=== PATIENT | male | born 1990 | race Caucasian/White ===

== ENCOUNTER 2017-12-17 19:29 | Emergency (ER) | payer OTHER ==
--- NOTE | 2017-12-17 19:59 | EDPHY ---
H & P Stated Complaint: possible kidney stone-hx of Time Seen by Provider: 12/17/17 19:53 - Personal History Current Tetanus Diphtheria and Acellular Pertussis (TDAP): No - Medical/Surgical History Hx Asthma: No Hx Chronic Respiratory Disease: No Hx Diabetes: No Hx Cardiac Disease: No Hx Renal Disease: No Hx Cirrhosis: No Hx Alcoholism: No Hx HIV/AIDS: No Hx Splenectomy or Spleen Trauma: No Other PMH: kidney stones - Social History Smoking Status: Never smoked Constitutional: Initial Vital Signs Temperature (C) 37 C 12/17/17 19:32 Heart Rate 74 12/17/17 19:32 Respiratory Rate 16 12/17/17 19:32 Blood Pressure 160/88 H 12/17/17 19:32 O2 Sat (%) 96 12/17/17 19:32 O2 Delivery Mode Room Air Allergies/Adverse Reactions: No Known Allergies Allergy (Unverified 12/17/17 19:32) Home Medications: Medication Instructions Recorded Tamsulosin HCl [Flomax 0.4 MG (*)] 0.4 mg PO DAILY #10 cap 12/17/17 oxyCODONE IR [Oxycodone Ir (*)] 5 - 10 mg PO Q6 PRN #20 tab 12/17/17 Medical Decision Making - Diagnostics Imaging: Discussed imaging studies w/ body recall instructor Radiologist, I viewed and interpreted images myself ED Course/Re-evaluation: CHIEF COMPLAINT: "I think I have a kidney stone" HISTORY OF PRESENT ILLNESS: The patient is a 27 y/o male with a history of kidney stones complaining of waxing and waning left-sided flank pain onset today and progressively worsening. His pain is localized to his left flank and non-radiating. No abdominal or groin pain. Symptoms feel the same as prior kidney stones and pain is currently about 6/10 in severity. He has not taken anything for pain. No urinary symptoms. He is otherwise healthy. REVIEW OF SYSTEMS: A 10 point review of systems was performed and is negative with the exception of the elements mentioned in the history of present illness. PHYSICAL EXAM: HR, BP, O2 Sat, RR. Temp noted General Appearance: Alert, well hydrated, appropriate, and non-toxic appearing. Head: Atraumatic without scalp tenderness or obvious injury Eyes: Pupils equal, round, reactive to light and accommodation, EOMI, no trauma , no injection. Nose: Atraumatic, no rhinorrhea, clear. Throat: Mucus membranes moist. Neck: Supple Respiratory: No retractions, no distress, no wheezes, and no accessory muscle use. Lungs are clear to auscultation bilaterally. Cardiovascular: Regular rate and rhythm, no murmurs, rubs, or gallops. Good capillary refill all extremities. Gastrointestinal: Abdomen is soft, non-tender, non-distended, no masses, no rebound, no guarding, no peritoneal signs. Musculoskeletal: Normal active ROM of all extremities, atraumatic. Left CVA tenderness. Neurological: Alert, appropriate, and interactive. Nonfocal. Skin: No rashes, good turgor, no nodules on palpation. PAST MEDICAL HISTORY: Kidney stones PAST SURGICAL HISTORY: Noncontributory. SOCIAL HISTORY: Lives in [place]. Employed. DIAGNOSTICS/PROCEDURES/CRITICAL CARE TIME: Abdominal CT: 3mm proximal ureteral stone on the left. DIFFERENTIAL DIAGNOSIS: The differential diagnosis for the patient's flank pain included but was not limited to musculoskeletal causes, kidney stone, pyelonephritis, shingles, diverticulitis, appendicitis, and aortic aneurysm. MEDICAL DECISION MAKING: This is a 27 y/o male with a history of kidney stones who presents with a several-hour history of left flank pain that feels similar to prior stones. He has left CVA tenderness on exam and is anxious-appearing. Plan for abdominal CT and UA. He declined pain medication at this time. CT shows 3mm stone on the left. Reassessed patient and discussed findings. He will be discharged with standard kidney stone care and follow instructions plus scripts for Oxycodone and Flomax. He understands he needs to follow up with urology. Return precautions discussed. He is comfortable with this plan. - Data Points Laboratory Results: 12/17/17 19:50 Urine Color Pending Urine Appearance Pending Urine pH Pending Ur Specific [place] Pending Urine Protein Pending Urine Ketones Pending Urine Blood Pending Urine Nitrate Pending Urine Bilirubin Pending Urine Urobilinogen Pending Ur Leukocyte Esterase Pending Urine RBC Pending Urine WBC Pending Ur Epithelial Cells Pending Urine Glucose Pending Departure - Departure Disposition: Home, Routine, Self-Care Clinical Impression: Kidney stone on left side Condition: Good Instructions: Kidney Stones (ED), How to Strain Your Urine (ED), Tamsulosin ( By mouth), Oxycodone/Acetaminophen (By mouth) Additional Instructions: 1. Take 800mg ibuprofen every 6-8 hours as needed for pain over the next few days. 2. Use oxycodone as prescribed as needed for severe pain. This medication can make you drowsy, do not use prior to driving. 3. Take FLomax as prescribed. 4. Strain urine as directed. 5. Follow up with urologist this week. 6. Return to the ED for worsening of condition. Referrals: Luciano Patel MD [Medical Doctor] - As per Instructions Prescriptions: oxyCODONE IR [Oxycodone Ir (*)] 5 - 10 mg PO Q6 PRN #20 tab PRN Reason: Pain, Severe Tamsulosin HCl [Flomax 0.4 MG (*)] 0.4 mg PO DAILY #10 cap Report Scribed for: Kai Thorpe Report Scribed by: Alicja Hernandez Date of Report: 12/17/17 Time of Report: 20:00
[2017-12-17] MEDS ORDERED: OXYCODONE/APAP 5/325MG PREPACK#4 BTL TAKEHOME ONE (20:14)
[2017-12-17] MEDS ORDERED: TAMSULOSIN HCL 0.4 MG CAP PO ONE (20:15)
[2017-12-17 20:28] VITALS: BP 162/82
== END 2017-12-17 20:31 | disposition home or self-care (01) ==
DX: N20.0 Calculus of kidney (principal)